=== PATIENT | female | born 1950 | race Caucasian/White ===

== ENCOUNTER → 2019-05-10 | Outpatient (CLI) | payer MEDICARE, MEDICAID ==
[~2019-05-10] MED LIST: ACTOS15 MG PO; CLONAZEPAM PO; DEPLIN15 MG PO; EFFEXOR-XR150 MG PO; EFFEXOR50 MG PO; HUMALOG100 U/ML SC; LANTUS100 U/ML SQ; LEVOTHYROXIN0.075 MG PO; LORTAB 5/500 501 TAB PO; LOTREL; RISPERDAL 0.20.25 MG PO; ROPINAROLE; SEROQUEL400 MG PO; SYNTHROID0.3 MG PO; [UNRECOGNIZED DRUG - OTHER]
== END ==
LOC: COL.RAD 07:02
DX: K29.70 Gastritis, unspecified, without bleeding (principal)
CPT/HCPCS: A9541

== ENCOUNTER → 2019-05-13 | Outpatient (CLI) | payer MEDICARE, MEDICAID | LOC: COL.RAD 07:34 | DX: Z01.818 Encounter for other preprocedural examination (principal); E11.9 Type 2 diabetes mellitus without complications; K29.70 Gastritis, unspecified, without bleeding; K76.9 Liver disease, unspecified; Z90.710 Acquired absence of both cervix and uterus | CPT/HCPCS: Q9967 ==